=== PATIENT | male | born 1995 | race Caucasian/White ===

== ENCOUNTER 2023-05-13 22:20 | Emergency (ER) | payer SELFPAY ==
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
[2023-05-13 22:21] VITALS: BP 136/78; PULSE 84; O2SAT 98
[2023-05-13 22:31] VITALS: BP 123/83; PULSE 82; RESP 15; TEMP 37.2; O2SAT 96; BMI 23.9
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
--- NOTE | 2023-05-14 00:33 | PC.NURSE ---
unable to pull lidocaine 2%, per provider verbal order, override lidocaine 1%. Dr. Watters in room suturing pt lacerations.
[2023-05-14 00:40] VITALS: BP 122/76; PULSE 68; RESP 16; TEMP 37.2; O2SAT 98
== END 2023-05-14 00:41 | disposition home or self-care (01) ==
PROVIDERS: Emergency Provider Emergency Medicine
DX: S01.112A Laceration without foreign body of left eyelid and periocular area, initial encounter (principal); S20.229A Contusion of unspecified back wall of thorax, initial encounter; Y04.0XXA Assault by unarmed brawl or fight, initial encounter; Y93.89 Activity, other specified; Y92.9 Unspecified place or not applicable; Y99.9 Unspecified external cause status
CPT/HCPCS: 12013; 70450; 99284